=== PATIENT | male | born 1950 | race Caucasian/White ===

== ENCOUNTER 2016-10-07 10:11 | Outpatient (CLI) | payer BC | END 2016-10-07 10:12 | disposition home or self-care (01) | DX: G89.4 Chronic pain syndrome (principal) ==

== ENCOUNTER 2017-06-01 10:27 | Outpatient (CLI) | payer MEDICARE, BC | END 2017-06-01 10:28 | disposition home or self-care (01) | LOC: RT 10:27 | PROVIDERS: ATTEND Orthopaedic Surgery Orthopaedic Surgery of the Spine | DX: Z01.810 Encounter for preprocedural cardiovascular examination (principal) | CPT/HCPCS: 93005 ==